=== PATIENT | male | born 1945 | race African-American/Black ===

== ENCOUNTER 2016-07-30 04:48 | Day surgery (SDC) | payer MEDICARE, BC ==
[~2016-07-30 04:48] MED LIST: ADVIL PO; ASAB PO; COREG3 PO; COREG6 PO; FLOMAX4 PO; GLUCCHONDR PO; GLUCOTROL5 PO; GLUCPH PO; HYDROCHLOROT25 MG PO; IMDUR30 PO; LIPITOR20 PO; LIPITOR40 PO; MULTIPLE VIT PO; NEUR100 PO; NITROSTAT0.4 MG SL; NORCO1 TA1 PO; NORV10 PO; PRILO PO; PRILOSEC40 MG PO; PRIN20 PO; ULTRAM50 PO; ZANAFLEX 4 MG TA4 MG PO; ZOCOR40 PO
== END 2016-07-30 09:07 | disposition home or self-care (01) ==
LOC: SDC 04:48
PROVIDERS: Orthopaedic Surgery
PROC: 3E0S3BZ Introduction of Anesthetic Agent into Epidural Space, Percutaneous Approach (ICD-10-PCS; 2016-07-30)
PROC: B01BYZZ Fluoroscopy of Spinal Cord using Other Contrast (ICD-10-PCS; 2016-07-30)
PROC: 3E0S33Z Introduction of Anti-inflammatory into Epidural Space, Percutaneous Approach (ICD-10-PCS; principal; 2016-07-30 07:30)
DX: M54.16 Radiculopathy, lumbar region (principal); E78.00 Pure hypercholesterolemia, unspecified; I10 Essential (primary) hypertension; M19.90 Unspecified osteoarthritis, unspecified site; G47.30 Sleep apnea, unspecified; K21.9 Gastro-esophageal reflux disease without esophagitis; E11.9 Type 2 diabetes mellitus without complications; Z96.653 Presence of artificial knee joint, bilateral; Z88.5 Allergy status to narcotic agent; Z98.890 Other specified postprocedural states
CPT/HCPCS: 82962; J1040; J2250; J3010; Q9967

== ENCOUNTER 2016-08-13 04:51 | Day surgery (SDC) | payer MEDICARE, BC | END 2016-08-13 11:22 | disposition home or self-care (01) | LOC: SDC 04:51 | PROVIDERS: Orthopaedic Surgery | PROC: 3E0R33Z Introduction of Anti-inflammatory into Spinal Canal, Percutaneous Approach (ICD-10-PCS; 2016-08-13) | PROC: B01BYZZ Fluoroscopy of Spinal Cord using Other Contrast (ICD-10-PCS; 2016-08-13) | PROC: 3E0R3BZ Introduction of Anesthetic Agent into Spinal Canal, Percutaneous Approach (ICD-10-PCS; principal; 2016-08-13 07:15) | DX: M54.16 Radiculopathy, lumbar region (principal); E11.9 Type 2 diabetes mellitus without complications; G47.33 Obstructive sleep apnea (adult) (pediatric); Z88.5 Allergy status to narcotic agent; Z79.82 Long term (current) use of aspirin; Z79.1 Long term (current) use of non-steroidal anti-inflammatories (NSAID); Z79.899 Other long term (current) drug therapy; Z96.653 Presence of artificial knee joint, bilateral; Z98.890 Other specified postprocedural states | CPT/HCPCS: 77003; 82962; J1040; J2250; J3010; Q9967 ==